=== PATIENT | male | born 1945 | race Caucasian/White ===

== ENCOUNTER 2024-03-11 13:23 | Emergency (ER) | payer MEDICARE, BC, SELFPAY ==
[2024-03-11 13:27] VITALS: BP 140/74
--- NOTE | 2024-03-11 13:31 | ED.PDOC.TRB ---
ED Provider Triage
-
Patient seen by provider in Triage?: Seen in Triage
78-year-old male presents after fall down a hill while fishing. He hit his head. He is on Eliquis. No loss conscious. He has a 1 cm laceration left parietal scalp not currently bleeding. He has a moderate size hematoma to the left lower leg and
pain to the left shoulder. X-rays left shoulder and hip are pending. CT of the head pending. Cervical spine nontender in triage. Tetanus vaccine ordered. Sent to [facility]
--- NOTE | 2024-03-11 14:49 | ED.MUSCINJ ---
HPI-Injury
General
Chief Complaint: Fall
Source: patient
Time Seen by Provider: 03/11/24 14:37
History of Present Illness-Injury
Initial Injury comments:
78-year-old male presents after a fall he sustained earlier today. He was fishing and lost his balance and fell down the bank. He is on Eliquis. He hit his head. He complains of left shoulder and left lower leg pain. No loss of conscious. He
denies neck pain or chest pain or shortness of breath. No other complaints at this time
Past History
Past History
ED Past Medical History: HTN and Hypercholesterolemia
ED Past Surgical History: Cholecystectomy
Social History
Tobacco: Non-smoker
Alcohol: Daily (Beer one)
Personal:
Living: with family
Phy Exam
Physical Exam
Physical Exam:
General: Well-appearing male no acute respiratory distress
HEENT: Normocephalic 1.5 cm laceration left parietal scalp PERRL. EOMI
Musculoskeletal exam: The spine is nontender. He is slightly tender to the left superior shoulder without deformity. Slightly decreased range of motion left shoulder. The left lower leg is also slightly tender laterally with overlying hematoma.
Compartments are soft
Neurologic exam: Alert and oriented good sensation to the lower extremities
Injury Course
Orders/Labs/Results
Orders:
Orders
03/11/24 13:29
CT Head W/o Iv Contrast Urgent
Comment:
Reason For Exam: fall, on eliquis
CR Leg Tibia/fibula Left 2 Vw Urgent
Comment:
Reason For Exam: fall, swelling
CR Shoulder, Trauma - Left Urgent
Comment:
Reason For Exam: fall, left shoudler pain
03/11/24 13:30
Tetanus/Diphth/Acelpertussis [Adacel] 0.5 ml IM .ONCE ONE
MDM/Problems Addressed
Differential Diagnosis Includes:
Fall on Eliquis head strike. CT head was reviewed and is negative for acute finding. Laceration left parietal scalp which was irrigated with saline and anesthetized with 1% lidocaine and held in approximation with 2 skin sara. X-ray left
shoulder and left lower leg were reviewed and are negative for acute finding. Reexamined leg which is not obviously swollen. Is soft. No concerning signs for compartment syndrome
*Critical Care Note
Total Time (30-74mins, 75-104mins- exclusive of procedures): Not Applicable
ED Attending Note
-
Portions of this chart may have been created with voice recognition software.� Occasional wrong word or��sound alike� substitutions may have occurred due to the inherent limitations of voice recognition software.
Discharge Plan
Departure
Patient Disposition: Home (Routine Discharge)
Date of Disposition: 03/11/24
Time of Disposition: 14:54
Patient with high blood pressure during this ER visit?: No
Discharge Problem:
Laceration, Hematoma
Instructions: Laceration Repair With Sara (DC)
Prescriptions:
No Action
multivitamin 1 EACH capsule
1 ea PO DAILY
losartan 50 MG tablet
50 mg PO DAILY
atorvastatin 40 MG tablet
40 mg PO QPM
clonazepam 0.5 MG tablet
1 - 2 tab PO HSPRN PRN (Reason: sleep)
paroxetine HCl 30 MG tablet
30 mg PO DAILY
sildenafil (pulm.hypertension) 20 MG tablet
20 mg PO PRN PRN (Reason: ed)
acetylcysteine [NAC] 600 MG capsule
1,200 mg PO BID
hydromorphone 2 MG tablet
2 mg PO Q6HPRN PRN (Reason: Pain) Qty: 10 0RF
tamsulosin 0.4 MG capsule
0.4 mg PO DAILY Qty: 5 0RF
ondansetron 4 MG tablet,disintegrating
4 mg PO Q8HPRN PRN (Reason: Nausea/Vomiting) Qty: 10 0RF
Activity Restrictions/Additional Instructions:
You may take Tylenol if needed for pain. Watch for increased swelling of the leg. Have sara removed in 7 to 10 days. Return if needed otherwise
Discharge Date and Time
Print Language: HEBREW
[2024-03-11] MEDS: ADACEL 0.5 ML IM (14:59)
[2024-03-11 15:07] VITALS: BP 137/88
== END 2024-03-11 15:19 | disposition home or self-care (01) ==
LOC: EMR 13:23
PROVIDERS: EMERGENCY PHYSICIAN Emergency Medicine
DX: S01.01XA Laceration without foreign body of scalp, initial encounter (principal); S80.12XA Contusion of left lower leg, initial encounter; W19.XXXA Unspecified fall, initial encounter; Y93.89 Activity, other specified; M25.512 Pain in left shoulder; E78.00 Pure hypercholesterolemia, unspecified; M17.12 Unilateral primary osteoarthritis, left knee; Z79.01 Long term (current) use of anticoagulants; Z23 Encounter for immunization
CPT/HCPCS: 12001; 70450; 73030; 73590; 90471; 90715; 99284

== ENCOUNTER 2024-04-13 08:35 | Day surgery (SDC) | payer MEDICARE, BC, SELFPAY ==
[2024-04-05 10:24] VITALS: BMI 35.1
[2024-04-13 08:45] VITALS: BP 130/73
[2024-04-13 08:59] VITALS: BP 132/73
[2024-04-13 09:26] VITALS: BMI 34.6
[2024-04-13] MEDS: FLOMAX 0.4 MG PO (10:05)
[2024-04-13 11:26] LABS: ACT-LR - POC 308 Seconds (116-155)
[2024-04-13 11:46] LABS: ACT-LR - POC 327 Seconds (116-155)
[2024-04-13 12:27] VITALS: BP 130/73
[2024-04-13 12:29] VITALS: BP 108/73
--- NOTE | 2024-04-13 13:01 | ITS.CL.ABL ---
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
Ablation
Procedure Report:
ELECTROPHYSIOLOGIC STUDY AND POSSIBLE ABLATION
DATE: April 13, 2024
Primary Care Provider: Dr Nagi Villalta
Primary Flasher Adjuster: Dr Sana Smalls
INDICATION:
Symptomatic Atrial Fibrillation.
Paroxysmal (recent monitoring with 12% burden)
HISTORY: See H and P.
Symptomatic AF, poorly controlled with attempted medical therapy
HAS-BLED: 1
Age
CHADSVASc: 3
HTN
Age
PRESENTING RHYTHM: SR
HISTORY: See H and P.
Symptomatic AF, poorly controlled with attempted medical therapy.
ANTICOAGULATION: Eliquis 5 mg twice daily
'TIME-OUT': called and confirmed.
SEDATION/ANESTHESIA: provided via the anesthesia department using general anesthesia.
PROCEDURE:
Ultrasound Guidance performed by nd was utilized for femoral venous Vascular Access b/l.
A decapolar CS catheter was placed within the CS for mapping and pacing.
The intracardiac ultrasound catheter was positioned in the RA for continuous intracardiac ultrasound imaging.
Heparin bolus and infusion to target ACT at 300 -350 seconds was administered. Transseptal puncture was performed. This entailed advancing a sheath with dilator into the superior vena cava and withdrawing both (monitoring intracardiac ultrasound,
fluoroscopy and tip pressure) with the tip oriented toward the atrial septum. The fossa ovalis was engaged (indicated by sudden displacement of the sheath tip as well as tenting of the fossa seen on intracardiac ultrasound).
The [employer] transseptal system was used. Left atrial catheter position was confirmed by echocardiographic imaging and fluoroscopy followed by RF delivery using the [employer] system resulting in successful LA access with pressure monitoring
demonstrating LA pressure waveforms (LA mean pressure 6 mm Hg). The sheath was advanced over the dilator and positioned in the left atrium.
6The Lumoid Grid multipolar mapping catheter was initially positioned through the transseptal sheath for high density mapping.
Geometry and voltage mapping was performed using the Peace multipolar grid catheter. Ensite-X was utilized for three-dimensional electroanatomical mapping.
A 3-D map was created using [employer]. A 3-D reconstructed CT image was compared to the 3-D Ensite-X Voxel map to assist in anatomic evaluation, mapping and ablation.
The [employer] catheter and system was used for cardiac ablation. Catheter positioning was guided and confirmed using both I.C.E. and fluoroscopy.
PV isolation approach was used to electrically isolate each PV ostia (LSPV, LIPV, RSPV, RIPV).
Remapping with the Lumoid multipolar grid catheter found that all PVPs were eliminated at each vein demonstrating entrance block. Electrical isolation is accomplished and a wide area circumferential area. Pacing from the multipolar mapping catheter
around the the circumference of the ostia was performed at 10 ma and 2.0 msec output to assess for exit block. This demonstrated electrical isolation (entrance and exit) at each of the pulmonary vein ostia (LSPV, LIPV, RSPV, RIPV).
Programmed electrical stimulation failed to induce any sustained arrhythmias.
I.C.E. :
Pre-Ablation Post-Ablation
LVEF: 55 % 55 %
WMA: none none
Pericardial effusion: none none
COMPLICATIONS:
None
SUMMARY:
- Mapping and ablation to isolate the PVs
- 3-D Electroanatomical Mapping
- Intracardiac Ultrasound
Post ablation, I discussed today's findings and results with the patient's , Monet.
RECOMMENDATIONS:
- Observe in monitored bed.
- Maintain oral anticoagulation.
- Continue metoprolol succinate 25 mg daily
- He has next office visit scheduled for July 15, [address]ana Smalls
- I will plan to see him back in approximately 6 months at which point we can consider options for discontinuation of oral anticoagulation if he is maintaining sinus rhythm. I previously discussed with him that should he seek discontinuation of
oral anticoagulation that would require implantation of a loop recorder to best assess for any recurrences of atrial fibrillation.
Copy to:
Dr Nagi Villalta
Primary Flasher Adjuster: Dr Sana Smalls
--- NOTE | 2024-04-13 16:46 | PTCARENOTE ---
approx 1600 rn removed figure of 8 sutures per order, pt oozed. pressure held for 20 minutes without stopping. notified inpatient nursing aide jeniffer france , she ordered innoseal patch. at that time dr kev collazo came in and agreed w treatment. innoseal applied
and held pressure for 15 min. will continue to monitor and then get pt oob.
--- NOTE | 2024-04-13 16:58 | W.PN.UPDATE ---
Update Note
Progress Note Update
79 yo WM s/p PVI (Same day). He denies cp, sob, kathy diet, voiding, EKG SR, R fem site with slow ooze after F08 removed, 20min hold by RN and hemostasis patch applied with another 5 min hold. He will resume OAC Eliquis tonight at home. Activity
restrictions reviewed. 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 He will be for d/c home after 530p if no further bleeding from groin site.
== END 2024-04-13 17:17 | disposition home or self-care (01) ==
LOC: CATH 08:35
PROVIDERS: ATTENDING PHYSICIAN Internal Medicine Cardiovascular Disease; FAMILY PHYSICIAN Family Medicine
DX: I48.0 Paroxysmal atrial fibrillation (principal); I10 Essential (primary) hypertension; E78.00 Pure hypercholesterolemia, unspecified; Z79.01 Long term (current) use of anticoagulants
CPT/HCPCS: C1732; C1894; C1892; C1759; 85347; 86900; 86901; 93005; 93656; C1730; C1733; C1766

== ENCOUNTER 2024-10-19 06:44 | Day surgery (SDC) | payer MEDICARE, BC, SELFPAY ==
--- NOTE | 2024-10-19 08:17 | ITS.CL.IMPLP ---
[employer] - Implant Loop
Implant Loop
Procedure Report:
Date of Procedure: October 19, 2024
Primary Care Provider: Dr Nagi Villalta
Primary routing clerk: Dr Sana Smalls
Procedure: Insertable Loop Recorder Implantation
Indication:
Atrial fibrillation
Procedure:
The patient was brought to the procedure area in a fasting state. The anterior chest was prepped and draped in standard sterile fashion. The fourth intercostal space along the left sternal border was identified and this area was anesthetized with 10
mL of 1% lidocaine. After gathering the skin in this area, a small punch incision was made at approx intercostal space 4-5 at left costo-sternal junction using the provided scalpel/punch tool. The loop recorder was loaded into the tunneling device.
A tunnel was created in the subcutaneous tissue at a 45� angle along the coronal plane away from the sternum and towards the left flank. The tunneling device was inverted and the plunger was depressed, inserting the loop recorder into the
subcutaneous space. The tunneling device was removed. Manual pressure provide hemostasis. Adequate signal was confirmed. The skin was closed with steri-strips. The estimated blood loss was < 1 cc. A clean dressing was placed over the wound.
There were no complications.
Implant:
Medtronic Reveal LINQ
Conclusion: Uncomplicated implantation of loop recorder.
Recommendation:
His next scheduled appointment in the office is March 15, 2025. If at this office visit continuous monitoring via the loop recorder shows no recurrences of atrial fibrillation, anticoagulation can be discontinued with continued monitoring to
assess for any recurrence of sustained atrial fibrillation which would warrant reinitiation of anticoagulation.
Copy:
Dr Nagi Villalta
Dr Sana Smalls
== END 2024-10-19 08:16 | disposition home or self-care (01) ==
LOC: CATH 06:44
PROVIDERS: ATTENDING PHYSICIAN Internal Medicine Cardiovascular Disease; FAMILY PHYSICIAN Family Medicine; OTHER PHYSICIAN Internal Medicine Cardiovascular Disease
DX: Z09 Encounter for follow-up examination after completed treatment for conditions other than malignant neoplasm (principal); I10 Essential (primary) hypertension; Z79.01 Long term (current) use of anticoagulants; Z79.899 Other long term (current) drug therapy
CPT/HCPCS: 33285; C1764

== ENCOUNTER → 2025-03-09 09:52 | Outpatient (REF) | payer MEDICARE, BC, SELFPAY ==
[2025-03-09 10:31] LABS: Hematocrit 46.8 % (39.0-52.0); Hemoglobin 15.7 g/dL (13.0-18.0); Mean Corp Hgb Conc. 33.5 g/dL (33.0-37.0); Mean Corpuscular Volume 90.7 fL (80.0-94.0); Nucleated Red Blood Cells % 0 % (-); Platelet Count 192 10^3/uL (130-400); Red Cell Dist. Width 12.9 % (11.5-14.5)
[2025-03-09 10:37] LABS: INR 1.27; PT 16.5 Sec (11.4-14.6)
[2025-03-09 11:35] LABS: ALT (SGPT) 30 U/L (0-50); AST (SGOT) 29 U/L (17-59); Albumin 4.6 g/dl (3.5-5.0); Alkaline Phosphatase 81 U/L (38-126); Blood Urea Nitrogen 27 mg/dl (9-20); Calcium 9.4 mg/dl (8.4-10.2); Carbon Dioxide 28 mmol/L (22-30); Chloride 104 mmol/L (98-107); Glucose 112 mg/dl (70-99); Magnesium 2.1 mg/dl (1.6-2.3); Potassium 5.1 mmol/L (3.5-5.1); Sodium 138 mmol/L (135-145); Total Protein 7.2 g/dl (6.3-8.2); eGFR > 60.00
== END ==
LOC: SDSPAT 09:52
PROVIDERS: ATTENDING PHYSICIAN Internal Medicine Cardiovascular Disease; FAMILY PHYSICIAN Family Medicine
DX: I48.91 Unspecified atrial fibrillation (principal)
CPT/HCPCS: 36415; 80053; 83735; 85025; 85610; 86850; 86900; 86901; 87070

== ENCOUNTER 2025-03-16 05:53 | Inpatient (IN) | payer MEDICARE, BC, SELFPAY ==
[2025-03-09 10:03] VITALS: BMI 34.4
[2025-03-16] VITALS (26 sets, daily range): BP systolic 73–126; BP diastolic 40–76; BMI 34.4
[2025-03-16 09:17] LABS: ACT-LR - POC 332 Seconds (116-155)
[2025-03-16 09:41] LABS: ACT-LR - POC 310 Seconds (116-155)
[2025-03-16 10:04] LABS: ACT-LR - POC 318 Seconds (116-155)
--- NOTE | 2025-03-16 10:48 | ITS.CL.ABL ---
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
Ablation
Procedure Report:
ELECTROPHYSIOLOGIC STUDY AND POSSIBLE ABLATION
DATE: March 16, 2025
Primary Care Provider: Dr. Nagi Villalta
Primary Parent Coach: Dr Sana Smalls
INDICATION:
Symptomatic Atrial Fibrillation.
Persistent
HISTORY: See H and P.
Symptomatic AF, poorly controlled with attempted medical therapy.
He has known history of A-fib and underwent PVI with pulsed field 04/13/2024. Underwent Linq implant 10/19/2024 for ongoing monitoring.
He has recurred with symptomatic persistent atrial fibrillation. Symptoms consist primarily of dyspnea on exertion. Furthermore he has experienced a traumatic fall with traumatic injury to his left leg developing a large painful hematoma which
required brief interruption of oral anticoagulation.�
He presents today for electrophysiologic study and remapping with possible ablation as well as Watchman FRANCE exclusion.
HAS-BLED: 2
Age
H/O Bleeding
CHADSVASc: 3
HTN
Age
PRESENTING RHYTHM: AF
HISTORY: See H and P.
Symptomatic AF, poorly controlled with attempted medical therapy.
ANTICOAGULATION: Apixaban 5 mg twice daily
'TIME-OUT': called and confirmed.
SEDATION/ANESTHESIA: provided via the anesthesia department using general anesthesia.
PROCEDURE:
Ultrasound Guidance with real-time visualization of needle insertion and vessel patency performed by ma for femoral venous Vascular Access.
Under real-time US guidance, the needle was advanced with negative pressure into the vein. The needle was seen entering the vessel lumen with a good return of dark red flow, the syringe was removed, non-pulsatile, dark red blood low was noted and
the wire was passed without difficulty, then the needle was removed. US confirmed the wire was in the vein, not going into an artery,
Images were taken and saved for the patient's permanent record. Imaging findings typical femoral venous anatomy. Direct visualization of needle puncture into the femoral vein was observed and recorded.
A decapolar CS catheter was placed within the CS for mapping and pacing.
The intracardiac ultrasound catheter was positioned in the RA for continuous intracardiac ultrasound imaging.
Heparin bolus and infusion to target ACT at 300 -350 seconds was administered. Transseptal puncture was performed. This entailed advancing a sheath with dilator into the superior vena cava and withdrawing both (monitoring intracardiac ultrasound,
fluoroscopy and tip pressure) with the tip oriented toward the atrial septum. The fossa ovalis was engaged (indicated by sudden displacement of the sheath tip as well as tenting of the fossa seen on intracardiac ultrasound).
Transseptal puncture was performed. Left atrial catheter position was confirmed by echocardiographic imaging, pressure monitoring (LA mean pressure 9 mm Hg) and fluoroscopy. The sheath was advanced over the dilator and positioned in the left
atrium.
The [employer] multipolar mapping/ablation Sphere-9 catheter was positioned through the transseptal sheath for high density mapping.
Geometry and voltage mapping was performed using the [employer] mapping system for three-dimensional electroanatomical mapping.
Catheter positioning was guided and confirmed using both I.C.E. and fluoroscopy.
Cardioversion resulted in sinus rhythm.
High density electroanatomical three-dimensional mapping demonstrated 4 PVs: LSPV, LIPV, RSPV, RIPV.
Electroanatomical mapping demonstrates reconnection of the right superior pulmonary vein along its anterior quadrant.
Post electric field energy was used to isolate the right superior pulmonary vein
Ablation strategy included PVI as well as mapping for extra PV contributors to atrial fibrillation which would also be targeted if present.
After accomplishing pulmonary venous isolation, mapping identified additional areas likely to be extra PV contributors to atrial fibrillation. These areas demonstrated patchy low voltage as well as complex fractionated electrograms. These areas can
be sites for the formation of rotors which can drive and maintain atrial fibrillation. These areas are known to be significant contributors to initiation and perpetuation of atrial fibrillation.
Additional energy applications/additional ablation sets targeted extra PV contributors to atrial fibrillation.
Targets for additional PFA ablation included:
LA posterior wall targeted with pulsed electric field energy isolating the posterior wall of the left atrium
After ablation of the posterior wall, additional targets were addressed:
The ridge of tissue between the left atrial appendage and the left sided pulmonary veins (Ligament of Eduardo )
These areas were ablated using pulsed electric field energy eliminating the extra PV contributors to atrial fibrillation.
Post ablation mapping finds entrance and exit block at each of the pulmonary veins (LSPV, LIPV, RSPV, RIPV) as well as the LA posterior wall and the Ligament of Marshal rendering the sites no longer able to contribute to atrial fibrillation.
Programmed electrostimulation including burst atrial pacing as well the delivery of decremental extrastimuli down to atrial effective refractory period and no sustained arrhythmias could be induced.
I.C.E. :
Pre-Ablation Post-Ablation
LVEF: 55 % 55 %
WMA: none none
Pericardial effusion: none none
LA Pressure 9 14 (1400 ml IVF total given)
COMPLICATIONS:
None
SUMMARY:
- Mapping and ablation to isolate the PVs resulting in electrical isolation of the pulmonary veins
- Additional AF ablation sets X 2 after PVI (LA posterior wall, Ligament of Eduardo) resulting in elimination of the targeted extra PV contributors to atrial fibrillation.
- 3-D Electroanatomical Mapping
- Intracardiac Ultrasound
- Ultrasound guidance for vascular access
Post ablation, I discussed today's findings and results with the patient's son, Nabil.
RECOMMENDATIONS:
- Observe in monitored bed.
- Maintain oral anticoagulation.
- Proceed with Watchman implantation
Copy to:
Dr. Nagi Villalta
Dr Sana Smalls
[2025-03-16] MEDS: NSS 500 IV (11:15)
--- NOTE | 2025-03-16 11:34 | WATCHMAN.MD ---
Watchman Implant
-
WATCHMAN LEFT ATRIAL APPENDAGE CLOSURE DEVICE REPORT
DATE: March 16, 2025
Primary Care Provider: Dr. Nagi Villalta
Primary Perfusionist: Dr Sana Smalls
INDICATION:
Symptomatic Atrial Fibrillation.
Persistent
HISTORY: See H and P.
Symptomatic AF, poorly controlled with attempted medical therapy.
He has known history of A-fib and underwent PVI with pulsed field 04/13/2024. Underwent Linq implant 10/19/2024 for ongoing monitoring.
He has recurred with symptomatic persistent atrial fibrillation. Symptoms consist primarily of dyspnea on exertion. Furthermore he has experienced a traumatic fall with traumatic injury to his left leg developing a large painful hematoma which
required brief interruption of oral anticoagulation.�
He presents today for electrophysiologic study and remapping with possible ablation as well as Watchman FRANCE exclusion.
Watchman Team:
KYLIE: Dr Aaron Prieto M.D.
Implanter: Dr Boaz smalls M.D.
Procedure: Watchman left atrial appendage closure.
The patient was placed under general anesthesia by anesthesia.
A KYLIE probe was placed.
Intravenous and transseptal access was maintained from today's prior left atrial mapping and ablation procedure.
FRANCE type: Chicken wing
Heparin was administered to goal ACT 350-400 seconds. Fluid bolus was given.
Dr Boaz Smalls positioned and deployed the Watchman device.
A 5 Tongan curved pigtail was then substituted for the guidewire through the watchman sheath to the ostium of the left atrial appendage. The 5 Tongan pigtail was advanced into the left atrial appendage and angiography was performed. This allowed
additional measurements assessing left atrial appendage ostium size and FRANCE morphology.
The pigtail catheter was removed from the access sheath. A 31 mm Watchman device was flushed and then placed into the watchman access sheath and advanced through the sheath. The Watchman was clamped into the sheath. The device was deployed into
the left atrial appendage.
The PASS criteria were met. The stability tug test was performed and passed. Angiography and transesophageal echocardiogram revealed no leaks nor jets. The position was confirmed on angiography and transesophageal echo and there were no significant
shoulders. Compression ranges from 16% to 24 %.
After meeting the PASS release criteria the device was released into the left atrial appendage.
The watchman access sheath was then removed through the transseptal into the IVC. A figure 8 suture closure was performed at the site of the femoral venous puncture and the sheath as it was removed.
Impression:
- Successful Deployment of 31 mm WATCHMAN left atrial appendage closure device by Dr Boaz Smalls.
- Ultrasound guidance for vascular access
Recommended anticoagulation strategy for this specific patient is:
Maintain Eliquis 5 mg twice daily
Check transesophageal echo in 3 months to assess for any device related thrombus, assess for any leaks, and aid in the decision making regarding altering anticoagulation/antiplatelet recommendations.
At post procedure KYLIE leaks > 5mm are significant and require chronic full anticoagulation or consideration for leak closure.
Kat-device leaks between 3 and 5 mm may also carry an increased risk. These patients will need individualized risk assessment and discussion with Watchman team.
Leaks < 3 mm are generally considered non-significant.
With leak of any size suggestion is to check KYLIE 12 mo out from implant.
While the overall risk of device related infection for Watchman device is very low, we recommend SBE prophylaxis with amoxicillin for the first 6 months after device implantation until the device is more completely endothelialized. After the first
6 months, the risk of infection associated with a device is further reduced and routine antibiotic prophylaxis is not mandatory but can be decided on an individual case basis.
Continue cardiovascular care with Dr. Sana Smalls.
Office will arrange follow-up visit for next year.
He will be seen by JAYLON Orellana on June 07, 2025 prior to planned KYLIE
He is scheduled for his transesophageal echo on June 14, 2025.
cc:
Dr. Nagi Villalta
Dr Sana Smalls
--- NOTE | 2025-03-16 15:00 | W.PN.UPDATE ---
Update Note
Progress Note Update
79 yo WM s/p PVI/Watchman (Same day). He denies cp, sob, kathy diet, voiding in small amounts, EKG SR, R fem site c/d/i no HT, soft. He will resume Eliquis tonight. Activity restrictions reviewed. He will f/u [facility] HULL GRINDER in 3 mo. He is for d/c home after
3p if groin stable.
--- NOTE | 2025-03-16 16:09 | W.DS.TRANS ---
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
-
Discharge Instructions:
Discharge Diagnosis/Procedures Atrial fibrillation post ablation and Watchman
device implant
Diet Low Cholesterol
Driving Restrictions No driving for 24 hours
Others Tests A follow up KYLIE has been scheduled for you at
[facility] on 06/14/[address] Gordon.
Instructions: Atrial fibrillation
Catheter ablation for the heart
Heart-healthy diet
Left atrial appendage closure
Stand-Alone Forms: DC Instructions- Cath/EP Lab
Changes to Home Medications: No
Discharge Medications:
DC Medications w/original date entered in [employer]
atorvastatin 40 mg tablet 40 mg PO HS 08/29/17
clonazepam 0.5 mg tablet 1 - 2 tab PO HSPRN PRN sleep 08/29/17
losartan 50 mg tablet 50 mg PO HS 08/29/17
sildenafil (pulm.hypertension) 20 mg tablet 60 mg PO DAILYPRN PRN intercourse 08/29/17
apixaban 5 mg tablet (Eliquis) 5 mg PO BID 04/13/24
metoprolol succinate 25 mg tablet,extended release 24 hr 25 mg PO DAILY 04/13/24
tamsulosin 0.4 mg capsule 0.4 mg PO HS Smooth muscle relaxer 04/13/24
abbanjhmqfky-kfffrrph-iclhie tablet (Multivitamin 50 Plus tablet) 1 tab PO DAILY 03/16/25
paroxetine HCl 40 mg tablet 40 mg PO DAILY 03/16/25
polyethylene glycol 3350 17 gram/dose oral powder (Miralax) 4 g PO DAILY 03/16/25
Home Medication Changes
Pending Results: No
== END 2025-03-16 15:05 | disposition home or self-care (01) | DRG 317 ==
LOC: CATH-IN 05:53
PROVIDERS: Internal Medicine Cardiovascular Disease; ADMITTING PHYSICIAN Internal Medicine Cardiovascular Disease; FAMILY PHYSICIAN Family Medicine
PROC: 02583ZZ Destruction of Conduction Mechanism, Percutaneous Approach (ICD-10-PCS; 2025-03-16)
PROC: 4A023FZ Measurement of Cardiac Rhythm, Percutaneous Approach (ICD-10-PCS; 2025-03-16)
PROC: 02L73DK Occlusion of Left Atrial Appendage with Intraluminal Device, Percutaneous Approach (ICD-10-PCS; 2025-03-16)
PROC: 02K83ZZ Map Conduction Mechanism, Percutaneous Approach (ICD-10-PCS; 2025-03-16)
PROC: B24BZZ4 Ultrasonography of Heart with Aorta, Transesophageal (ICD-10-PCS; 2025-03-16)
PROC: 5A2204Z Restoration of Cardiac Rhythm, Single (ICD-10-PCS; 2025-03-16)
PROC: 4A0234Z Measurement of Cardiac Electrical Activity, Percutaneous Approach (ICD-10-PCS; 2025-03-16)
DX: I48.19 Other persistent atrial fibrillation (principal); Z00.6 Encounter for examination for normal comparison and control in clinical research program; E78.5 Hyperlipidemia, unspecified; I47.10 Supraventricular tachycardia, unspecified; F41.9 Anxiety disorder, unspecified; I10 Essential (primary) hypertension; Z91.81 History of falling; Z79.01 Long term (current) use of anticoagulants; Z82.49 Family history of ischemic heart disease and other diseases of the circulatory system
CPT/HCPCS: 33340; 85347; 93005; 93355; 93656; 93657; C1730; C1733; C1766; C1769; C1892; C1894; Q9967

== ENCOUNTER 2025-06-14 08:22 | Day surgery (SDC) | payer MEDICARE, BC, SELFPAY ==
[2025-06-14 10:51] VITALS: BMI 33.6
== END 2025-06-14 12:00 | disposition home or self-care (01) ==
LOC: CATH 08:22
PROVIDERS: ATTENDING PHYSICIAN Internal Medicine Cardiovascular Disease; FAMILY PHYSICIAN Family Medicine; OTHER PHYSICIAN Internal Medicine Cardiovascular Disease
DX: I08.0 Rheumatic disorders of both mitral and aortic valves (principal); Z79.82 Long term (current) use of aspirin; I70.0 Atherosclerosis of aorta; I48.91 Unspecified atrial fibrillation; Z95.818 Presence of other cardiac implants and grafts; E78.5 Hyperlipidemia, unspecified; I10 Essential (primary) hypertension
CPT/HCPCS: 93312; 93320; 93325